=== PATIENT | male | born 1935 | race Caucasian/White ===

== ENCOUNTER 2021-01-04 09:34 | Emergency (ER) | payer OTHER ==
[~2021-01-04] VITALS: Ht 175.3 cm; Wt 77.1 kg
[2021-01-04] MEDS ORDERED: DILTIAZEM ER180 M1 PO (09:49)
[2021-01-04] MEDS ORDERED: FINASTERIDE1 MG PO (09:49)
[2021-01-04] MEDS ORDERED: SPIRIVA18 MCG INH (09:50)
[2021-01-04] MEDS ORDERED: ESOMEPRAZOLE MA40 MG (09:50)
[2021-01-04] MEDS ORDERED: COZAAR100 MG PO (09:50)
[2021-01-04] MEDS ORDERED: ATORVASTATIN CA40 MG PO (09:50)
[2021-01-04] MEDS ORDERED: DEXAMETHASONE4 MG PO (09:51)
[2021-01-04] MEDS ORDERED: ACYCLOVIR400 MG PO (09:51)
--- OUTSIDE RECORDS SUMMARY | 2021-01-04 11:02 | XMS ---
PreManage Notification: HENRI MEDINA Security Supervisor Train Operations Events No recent Security Events currently on file CRITERIA MET - [facility] - 2 Visits in 30 Days CARE PROVIDERS There are no care providers on record at this time. [facility] has no Care Guidelines for this patient. [place] VISIT COUNT (12 MO.) [address] TOTAL 3 NOTE: Visits indicate total known visits. ED/C VISIT TRACKING (12 MO.) 01/04/2021 09:35 [facility] [place] TYPE: Emergency COMPLAINT: - POSS STROKE 12/31/2020 06:54 [facility] TYPE: Emergency COMPLAINT: - /unable to void 05/30/2020 10:46 [facility] TYPE: Emergency DIAGNOSES: 1. Unspecified abdominal pain 1. Ileus, unspecified 2. Cardiac arrest, cause unspecified 3. Thrombocytopenia, unspecified 4. Multiple myeloma not having achieved remission 5. Acute kidney failure, unspecified INPATIENT VISIT TRACKING (12 MO.) 05[facility]30/2020 15[facility] [place] TYPE: [facility] DIAGNOSES: 1. Paralytic ileus 2. Multiple myeloma not having achieved remission 3. Other obstructive and reflux uropathy 4. Chronic respiratory failure with hypoxia 5. Supraventricular tachycardia 6. Urinary tract infection, site not specified 7. Hypo-osmolality and hyponatremia 8. Hyperlipidemia, unspecified 9. Essential (primary) hypertension 10. Other secondary pulmonary hypertension 11. Mixed incontinence 12. Alcohol abuse, uncomplicated 13. Syncope and collapse 14. Sick sinus syndrome 15. Emphysema, unspecified 16. Contact with and (suspected) exposure to COVID19 17. Age-related physical debility 18. Benign prostatic hyperplasia with lower urinary tract symptoms 19. Gastro-esophageal reflux disease without esophagitis 20. Other amnesia 21. Hypokalemia 22. Pseudomonas (aeruginosa) (mallei) (pseudomallei) as the cause of diseases classified elsewhere 23. Anemia, unspecified 24. Other secondary thrombocytopenia 25. Other chronic pain 26. History of falling 27. Other retirement (current) drug therapy 28. Personal history of transient ischemic attack (TIA), and cerebral infarction without residual deficits [id number]
--- NOTE | 2021-01-05 21:21 | EKG ---
[facility] [address] [facility] [place], [place] [address] Signed Sinus rhythm with 1st degree AV block with premature atrial complexes Left anterior fascicular block Possible Anterolateral infarct , age undetermined Abnormal ECG No previous ECGs available Confirmed by JODEE HINOJOSA DO ([id number]) on 01/05/2021 9:21:44 PM Electronically Signed By: JODEE HINOJOSA DO 01/05/212120 PATIENT NAME: HENRI MEDINA Electrocardiogram DATE OF : [birth year] PHYSICIAN: JODEE HINOJOSA DO REPORT #: [id number] REPORT IS CONFIDENTIAL AND NOT TO BE RELEASED WITHOUT AUTHORIZATION
== END 2021-01-04 12:25 | disposition home or self-care (01) ==
LOC: ED 09:34
DX: E87.1 Hypo-osmolality and hyponatremia (principal); I44.0 Atrioventricular block, first degree; Z85.79 Personal history of other malignant neoplasms of lymphoid, hematopoietic and related tissues; Z79.899 Other long term (current) drug therapy; Z20.822 Contact with and (suspected) exposure to COVID-19
CPT/HCPCS: 70450; 71045; 80053; 81001; 85025; 93005; 93010; 99285-25; C9803; U0003